=== PATIENT | male | born 1955 | race African-American/Black ===

== ENCOUNTER → 2020-10-03 | Outpatient (CLI) | payer MEDICARE, OTHER ==
[~2020-10-03] MED LIST: ATOR10TA PO; LOSA1TAB25 PO
--- NOTE | 2020-10-03 13:13 | RAD ---
MR#: [id number] Date of Study: 10/03/2020 Ordering Physician: TARA ANGEL, Referring Physician: BONIFACIO GEORGES Tech: NILE Harrison ARRT (Shekhar) (N) APPROVED REPORT Test Type: Exercise Stress Nurse/Tech: Merlene Dillard R.N. Test Indications: CAD Cardiac History: high cholesterol ,HTN Medications: See Electronic Medical Record Medical History: See Electronic Medical Record Resting ECG: SR w/ST elevation in lead V3, and very slightly in lead II Resting Heart Rate: 89 bpm Resting Blood Pressure: 136/75mmHg Pretest Chest Pain: No chest pain Nurse/Tech Notes S1S2, lungs CTA Consent: The procedure was explained to the patient in lay terms. Informed consent was witnessed. Efren eout was entered into [employer]. History and Stress Test performed by NILE Harrison ARRT (R) (N) Stress Symptoms general fatigue POST EXERCISE Reason for Termination: Reached target heart rate Target HR: Yes Max HR: 137 bpm 105% of Maximum Predicted HR: 131 bpm Exercise duration: 5:58 min:sec, 2 Stage Exercise capacity: 7.0METs Max Blood Pressure: 162/79mmHg Blood Pressure response to exercise: Normal blood pressure response during stress. Heart Rate response to exercise: wnl Chest Pain: No. Arrhythmia: Yes. started having pvc's and pac's ST Change: No. INTERPRETATION Stress EKG Conclusion: No evidence of stress induced EKG changes. Imaging Protocol IMAGE PROTOCOL: Rest Tc-99m/stress Tc-99m 1 day Rest: Stress: Viability: Radiopharm.Tc99m JropbvglsNn53x Sestamibi [id number] 32mCi Img Date 10/03/2020 10/03/2020 Inj-Img [id number]. 60min. Rest Admin Site:IV - Right AntecubitalAdministrator:NIEL Harrison ARRT (R)(N) Stress Admin Site: IV - Right AntecubitalAdministrator: RT Leda Tesfaye)(N) STRESS DATA End Diast. Vol.40.0mlAv. Heart Rate96.0bpm End Syst. Vol.3.0mlCO Index BSA0.0L/min Myocardial Mass85.0gEject. Zplvvopx19.0% Stress Rates Pk. Fill Rate0.61EDV/secLVtime Pk. Fill 187.95msec Pk. Empty Rate8.92ESV/secLVtime Pk. Eject93.69msec /3 Pk. Fill0.22EDV/sec Stress Scores Regional WT0.00Summed WT0.00 Regional WM0.00Summed WM0.00 The rest and stress images show normal perfusion, normal contraction and thickening. LV Perf. Quant 17 Seg. SSS0.00 17 Seg. SRS0.00 17 Seg. SDS0.00 Stress Defect Extent (% LAD)0.00Rest Defect Extent (% LAD)0.00Rev. Defect Extent (% LAD)0.00 Stress Defect Extent (% LCX) 0.00Rest Defect Extent (% LCX)0.00Rev. Defect Extent (% LCX)0.00 Stress Defect Extent (% RCA)0.00Rest Defect Extent (% RCA)0.00Rev. Defect Extent (% RCA)0.00 Stress Defect Extent (% EH)0.00Rest Defect Extent (% EH)0.00Rev. Defect Extent (% EH)0.00 Other Information Quality:Good Risk Assessment: Low Risk Conclusion 1. No evidence of EKG changes with stress testing. 2. Normal perfusion at stress/rest. 3. Low risk study. 4. EF > 60%. Signed by : Tara Angel, Electronically Approved : 10/03/2020 13:12:32
== END ==
LOC: NM 08:52
PROVIDERS: ATTEND Internal Medicine Cardiovascular Disease
DX: I25.10 Atherosclerotic heart disease of native coronary artery without angina pectoris (principal); I10 Essential (primary) hypertension
CPT/HCPCS: 78452; 93017; A9500

== ENCOUNTER 2021-09-09 21:12 | Inpatient (IN) | payer MEDICARE, OTHER ==
[~2021-09-09] VITALS: Ht 162.6 cm; Wt 57.4 kg
[2021-09-09] MEDS ORDERED: IV NORMAL SALINE 1000ML BAG 1,000 ML IV ONE (21:30)
--- NOTE | 2021-09-09 21:44 | PHYS DOC ---
Past Medical History Past Medical History: High Cholesterol, Hypertension Past Surgical History: No Surgical History Smoking Status: Former Smoker Alcohol Use: None Drug Use: None General Adult EDM: Chief Complaint: Near Syncope HPI: HPI: Patient is a 65-year-old male with past medical history of hypertension and HLD presenting per EMS for near syncope this evening. He reports that he was just getting ready for bed began to feel very dizzy and get tunnel vision so he decided to sit down. Per EMS his blood pressure was 80 systolic over 50s diastolic. He reports that otherwise he was feeling fine today just a bit tired earlier. He denies any chest pain, shortness of breath, palpitations, head trauma, abdominal pain or dark/bloody stools. He denies use of blood thinners. He reports that he takes losartan for his blood pressure, and took it as prescribed this morning. Review of Systems: Review of Systems: Constitutional: Denies fever or chills HENT: Denies nasal congestion or sore throat Respiratory: Denies cough or shortness of breath Cardiovascular: Denies chest pain or palpitations GI: Denies abdominal pain, nausea, or vomiting : Denies dysuria or hematuria Musculoskeletal: Denies back pain or joint pain Integument: Denies rash or skin lesions Neurologic: Denies headache, focal weakness or sensory changes; reports near syncope and dizziness Complete systems were reviewed and found to be within normal limits, except as documented in this note. Heart Score: C/O Chest Pain: No Current Medications: Current Medications Medications (Trade) Dose Ordered Sig/[facility] Start Time Stop Time Status Last Admin Dose Admin Sodium Chloride 1,000 ml @ 1,000 mls/hr 1X ONCE 09/09/21 21:30 09/09/21 22:29 UNV Physical Exam: PE: Constitutional: Well developed, well nourished, no acute distress, non-toxic appearance HENT: Normocephalic, atraumatic Eyes: Conjunctiva normal, no discharge, no nystagmus Neck: Normal range of motion, supple Lungs & Thorax: No respiratory distress, equal chest rise and fall Abdomen: Soft, no tenderness Skin: Warm, dry, no erythema, no rash Back: No tenderness, no CVA tenderness Extremities: No tenderness, no edema, moves all extremities, +2/2 dorsalis pedis and radial pulses b/l Neurologic: Alert and oriented X 3, normal motor function, normal sensory function, no focal deficits noted Psychologic: Affect normal, judgment normal EKG: EKG: Pleated at 2123, normal sinus rhythm at 72 bpm, very mild nonspecific ST segment changes with no prior EKG to compare to, QRS 78 ms, QT/QTc 384/422 ms Radiology/Procedures: Radiology/Procedures: PROCEDURE: PORTABLE CHEST 1V Exam: Chest one view INDICATION: Near syncope TECHNIQUE: Frontal view of the chest Comparisons: None FINDINGS: The cardiomediastinal silhouette and pulmonary vessels are within normal limits. The lung and pleural spaces are clear. IMPRESSION: No acute cardiopulmonary process. Electronically signed by: Swapnil Cunha MD (09/09/2021 10:29 PM) [facility] PROCEDURE: CT HEAD WO CONTRAST Exam: CT head INDICATION: Near syncope, dizziness TECHNIQUE: Sequential axial images through the head were obtained without the administration of IV contrast. Exposure: One or more of the following in the visualized dose reduction techniques were utilized for this examination: 1. Automated exposure control 2. Adjustment of the MA and/or KV according to patient size 3. Use of iterative of reconstructive technique Comparisons: None FINDINGS: No focal parenchymal lesion or hemorrhage is identified. There is no midline shift or sulcal effacement. No acute vascular territory infarction is identified. Aldana-white distinction is preserved. The ventricular system is within normal limits without compression hydrocephalus. The basal cisterns are well maintained. The visualized portions of the paranasal sinuses and mastoid air cells are well- pneumatized. No acute fractures. IMPRESSION: No acute intracranial abnormality. Electronically signed by: Swapnil Cunha MD (09/09/2021 10:29 PM) [facility] Course & Med Decision Making: Course & Med Decision Making Pertinent Labs and Imaging studies reviewed. (See chart for details) Patient is a 65-year-old male with past medical history of hypertension and hyperlipidemia presenting from near syncope this evening. CBC unremarkable, CMP unremarkable besides creatinine of 2.5. No old labs to compare to per [facility] review. Head CT with no acute intracranial abnormality. Chest X-ray with no acute cardiopulmonary process. Patient initially hypotensive at 80 systolic, 1 L normal saline given. After 1 L of fluids, orthostatics were performed without significant change in heart rate or blood pressure during. Troponin within normal limits. proBNP within normal limits. Urine unremar kable. Lactic acidosis noted. IVF continued. Hyperammonemia also noted. Lactulose provided. Patient requiring admission for further evaluation and treatment. Discussed with Dr. Goerge (hospitalist) who is in agreement with admission. Discussed findings and plan with patient, who acknowledges understanding and agreement. Afshin Disclaimer: Afshin Disclaimer: This electronic medical record was generated, in whole or in part, using a voice recognition dictation system. Departure Departure Impression: Primary Impression: Near syncope Additional Impressions: Hypotension Qualified Codes: I95.9 - Hypotension, unspecified Renal insufficiency Lactic acidosis Hyperammonemia Disposition: ADMITTED INPATIENT Admitting Physician: JOSE (Ariel) Condition: GUARDED Critical Care Time Critical care time was 30 minutes which includes time at bedside, spent in discussion of patient's care with specialists and/or family members, with interpretation of laboratory and/or radiological studies and is exclusive of procedures. PAOLO RODRIGUES DO Sep 09, 2021 21:44
[2021-09-09 22:02] LABS: BASO # 0.1 x10^3/uL (0.0-0.2); BASO % 1 % (0-3); EOS # 0.6 x10^3/uL (0.0-0.7); EOS % 8 % (0-3); HEMATOCRIT 40.8 % (39.0-53.0); HEMOGLOBIN 13.8 g/dL (13.0-17.5); LYMPH # 1.9 x10^3/uL (1.0-4.8); LYMPH % 25 % (24-48); MEAN CORPUSCULAR HEMOGLOBIN 31 pg (25-35); MEAN CORPUSCULAR HGB CONC 34 g/dL (31-37); MEAN CORPUSCULAR VOLUME 92 fL (79-100); MONO # 0.7 x10^3/uL (0.0-1.1); MONO % 9 % (0-9); NEUT # 4.4 x10^3/uL (1.8-7.7); NEUT % 57 % (31-73); PLATELET COUNT 217 x10^3/uL (140-400); RED BLOOD COUNT 4.44 x10^6/uL (4.30-5.70); RED CELL DISTRIBUTION WIDTH 14.5 % (11.5-14.5); WHITE BLOOD COUNT 7.7 x10^3/uL (4.0-11.0)
[2021-09-09 22:05] LABS: CALCIUM 8.8 mg/dL (8.5-10.1); CREATININE 2.5 mg/dL (0.7-1.3); GFR 31.4; POTASSIUM 3.8 mmol/L (3.5-5.1)
[2021-09-09 22:10] LABS: ALBUMIN 3.8 g/dL (3.4-5.0); ALBUMIN/GLOBULIN RATIO 1.3 (1.0-1.7); MAGNESIUM 2.1 mg/dL (1.8-2.4); TOTAL BILIRUBIN 1.1 mg/dL (0.2-1.0); TOTAL PROTEIN 6.8 g/dL (6.4-8.2)
--- NOTE | 2021-09-09 22:31 | RAD ---
Exam: Chest one view INDICATION: Near syncope TECHNIQUE: Frontal view of the chest Comparisons: None FINDINGS: The cardiomediastinal silhouette and pulmonary vessels are within normal limits. The lung and pleural spaces are clear. IMPRESSION: No acute cardiopulmonary process. Electronically signed by: Swapnil Cunha MD (09/09/2021 10:29 PM) [facility]
--- NOTE | 2021-09-09 22:31 | RAD ---
Exam: CT head INDICATION: Near syncope, dizziness TECHNIQUE: Sequential axial images through the head were obtained without the administration of IV co ntrast. Exposure: One or more of the following in the visualized dose reduction techniques were utilized for this examination: 1. Automated exposure control 2. Adjustment of the MA and/or KV according to patient size 3. Use of iterative of reconstructive technique Comparisons: None FINDINGS: No focal parenchymal lesion or hemorrhage is identified. There is no midline shift or sulcal effaceme nt. No acute vascular territory infarction is identified. Aldana-white distinction is preserved. The ventricular system is within normal limits without compression hydrocephalus. The basal cisterns are well maintained. The visualized portions of the paranasal sinuses and mastoid air cells are well-pneumatized. No acute fractures. IMPRESSION: No acute intracranial abnormality. Electronically signed by: Swapnil Cunha MD (09/09/2021 10:29 PM) [facility]
[2021-09-09 22:59] LABS: BILIRUBIN,URINE NEGATIVE (NEG); CLARITY,URINE CLEAR; COLOR,URINE YELLOW; NITRITE,URINE NEGATIVE (NEG); PH,URINE 6.5 (<5.0-8.0); PROTEIN,URINE NEGATIVE (NEG-TRACE); UROBILINOGEN,URINE 0.2 mg/dL (0.2 mg/dL)
[2021-09-09 23:04] LABS: BARBITURATES NEG (NEG); BENZODIAZEPINES NEG (NEG); CANNABINOIDS NEG (NEG); COCAINE NEG (NEG); METHADONE NEG (NEG); OPIATES NEG (NEG); PHENCYCLIDINE NEG (NEG)
[2021-09-09 23:05] LABS: AMPHETAMINE/METHAMPHETAMINE NEG (NEG); BACTERIA,URINE 0 /HPF (0-FEW); HYALINE CASTS, URINE MODERATE /HPF; RBC,URINE OCC /HPF (0-2); WBC,URINE OCC /HPF (0-4)
[2021-09-10] MEDS ORDERED: ONDANSETRON PF 4 MG/2 ML VIAL. IVP PRN
[2021-09-10] MEDS ORDERED: IV NORMAL SALINE 1000ML BAG 1,000 ML IV SCH (00:30)
[2021-09-10] MEDS ORDERED: LACTULOSE 20 GM/30 ML SOLUTION. PO ONE (00:30)
[2021-09-10] MEDS ORDERED: IV NORMAL SALINE 1000ML BAG 1,000 ML IV ONE (00:30)
[2021-09-10 01:24] VITALS: BP 118/73
--- NOTE | 2021-09-10 02:00 | EKG ---
[facility] [address] [place] [address] Test Date: 2021-09-09 Test Time: 21:23:43 Pat Name: SHAE KELLEY Department: Room: 582 1 Gender: M [employer]: : 1955 Requested By: PAOLO RODRIGUES Order Number: [id number] Reading MD: Jamie Lott Measurements Intervals [place] Rate: 72 P: AK: QRS: 50 QRSD: 78 T: 51 QT: 384 QTc: 422 Interpretive Statements SINUS RHYTHM ST & T ABNORMALITY, CONSIDER RECENT INFERIOR MYOCARDIAL OR PERICARDIAL DAMAGE ABNORMAL ECG RI6.02 No previous ECG available for comparison Electronically Signed On 09-11-2021 9:27:29 CRYSTAL LAPPER by Jamie Lott
[2021-09-10 07:00] VITALS: BP 156/70
[2021-09-10 11:00] VITALS: BP 158/64
--- NOTE | 2021-09-10 13:03 | SSS ---
DATE OF SERVICE: 09/10/2021 ADMIT DATE: 09/09/2021 CHIEF COMPLAINT: Syncope. HISTORY OF PRESENT ILLNESS: The patient is a pleasant middle-aged male who has been having problems with dizziness lately. He states when he stands up, he gets a little dizzy. At this time, he actually passed out. He was brought in by EMS. When they arrived, his pressure was 80/50. He reports otherwise feeling great. While in the ER, he was noted to have a little bit of a high lactic acid of 4.1. He was admitted overnight for observation. This morning, his lactic acid is back down to the normal range at 1.7. He looks great. He wants to go home. Vital signs are stable. I suspect he had some orthostasis. We are going to discharge the patient. I gave him instructions on how to stand up slowly. PAST MEDICAL HISTORY: Hypertension, hyperlipidemia, tobacco abuse. ALLERGIES: PENICILLIN. FAMILY HISTORY: Hypertension. SOCIAL HISTORY: He smokes. No drink or drugs. MEDICATIONS: Reviewed, please refer to the MRAD. REVIEW OF SYSTEMS: GENERAL: No history of weight change, weakness or fevers. SKIN: No bruising, hair changes or rashes. EYES: No blurred, double or loss of vision. NOSE AND THROAT: No history of nosebleeds, hoarseness or sore throat. HEART: No history of palpitations, chest pain or shortness of breath on exertion. LUNGS: Denies cough, hemoptysis, wheezing or shortness of breath. GASTROINTESTINAL: Denies changes in appetite, nausea, vomiting, diarrhea or constipation. GENITOURINARY: No history of frequency, urgency, hesitancy or nocturia. NEUROLOGIC: Denies history of numbness, tingling, tremor or weakness. PSYCHIATRIC: No history of panic, anxiety or depression. ENDOCRINE: No history of heat or cold intolerance, polyuria or polydipsia. EXTREMITIES: Denies muscle weakness, joint pain, pain on walking or stiffness. PHYSICAL EXAMINATION: VITALS: Within normal limits and are stable. GENERAL: No apparent distress. Alert and oriented. HEENT: Normal cephalic atraumatic, external auditory canals are patent EYES: Extraocular muscles are intact, pupils are equally round and reactive to light and accommodation MUSCULOSKELETAL: Well developed, well nourished, good range of motion ENDOCRINE: No thyromegaly was palpated LYMPHATICS: No cervical chain or axillary nodes were noted HEMATOPOIETIC: No bruising NECK: Supple, no JVD, no thyromegaly was noted. LUNGS: Clear to auscultation in all lung earl without rhonchi or wheezing. HEART: RRR, S1, S2 present. Peripheral pulses intact, no obvious murmurs were noted. ABDOMEN: Soft, nontender. Positive bowel sounds no organomegaly, normal bowel sounds. EXTREMITIES: Without any cyanosis, clubbing, or edema. Pedal pulses intact, Homans sign is negative. NEUROLOGIC: Normal speech, normal tone. A and O x 3, moves all extremities, no obvious focal deficits. PSYCHIATRIC: Normal affect, normal mood. Stable. SKIN: No ulcerations or rashes, good skin turgor, no jaundice. VASCULAR: Good capillary refill, neurovascular bundle appears to be intact. ASSESSMENT AND PLAN: Resolving syncope, suspect vasovagal. I instructed the patient to please stand up slowly, give his body a few minutes to readjust. DISPOSITION: Home. ACTIVITY: As tolerated. DIET: Low sodium. MEDICATIONS: Please see the MRAD. TOTAL TIME: [address]: Windy TID: [id number]
--- NOTE | 2021-09-10 13:26 | NUR ---
Discharge Note: VERONICA KELLEY [facility] Discharge instructions reviewed with the patient and a copy given. All questions have been answered and understanding verbalized. The following instructions and handouts were given: Orthostatic hypotension, causes and prevention Increase fluid intake, avoid caffeine Follow up with PCP in a week. Seek emergent care if with severe weakness, repeat episode with chest pain. Discontinued lines and drains: peripheral IV intatc, patient tolerated removal, no complications noted Patient discharged to home with self care via WC accompanied by the patient's at 1300.
== END 2021-09-10 13:00 | disposition home or self-care (01) | DRG 312 ==
LOC: ER 21:12 → UNMERGE 23:55 → 5 SOUTH 23:55 → MERGE 23:55
PROVIDERS: ADMIT Internal Medicine; ATTEND Internal Medicine
DX: R55 Syncope and collapse (principal); E72.20 Disorder of urea cycle metabolism, unspecified; E87.2 Acidosis; I95.9 Hypotension, unspecified; E78.00 Pure hypercholesterolemia, unspecified; E78.5 Hyperlipidemia, unspecified; F17.200 Nicotine dependence, unspecified, uncomplicated; I10 Essential (primary) hypertension; N28.9 Disorder of kidney and ureter, unspecified; Z82.49 Family history of ischemic heart disease and other diseases of the circulatory system; Z88.8 Allergy status to other drugs, medicaments and biological substances; Z79.899 Other long term (current) drug therapy; Z88.0 Allergy status to penicillin
CPT/HCPCS: 36415; 70450; 71045; 80053; 80307; 81001; 82140; 82553; 83605; 83735; 83880; 84484; 85025; 87040; 93005; 96360; G0480; J7030; 99285-25; G0378

== ENCOUNTER → 2021-09-20 | Outpatient (CLI) | payer MEDICARE, OTHER ==
[~2021-09-20] MED LIST changes: +POTA-112 PO
--- NOTE | 2021-09-20 09:27 | RAD ---
EXAM: Abdominal aortic sonogram. HISTORY: Tobacco use. Aortic aneurysms screening. TECHNIQUE: Sonographic imaging of the abdominal aorta was performed. COMPARISON: None. FINDINGS: The proximal abdominal aorta measures 2.2 cm in caliber. The mid abdominal aorta measures 1 .7 cm in caliber. The distal abdominal aorta measures 1.6 cm in caliber. There is mild calcified athe rosclerotic plaque involving the aorta. IMPRESSION: 1. No evidence of abdominal aortic aneurysm. 2. Mild aortic atherosclerosis. Electronically signed by: Samantha Boston MD (09/20/2021 9:24 AM) [id number]
== END ==
LOC: US 09:17
PROVIDERS: ATTEND Internal Medicine Cardiovascular Disease
DX: I70.0 Atherosclerosis of aorta (principal); Z72.0 Tobacco use
CPT/HCPCS: 76770

== ENCOUNTER 2021-09-22 20:02 | Emergency (ER) | payer MEDICARE, OTHER ==
[~2021-09-22] VITALS: Ht 162.6 cm; Wt 63.0 kg
[~2021-09-22 20:02] MED LIST changes: -POTA-112 PO
--- NOTE | 2021-09-22 20:10 | PHYS DOC ---
General Adult EDM: Chief Complaint: HYPOTENSION HPI: HPI: Patient is a 65-year-old male who presents to the emergency department for hypotension. Patient had an episode of hypotension 2 weeks ago that resolved. EMS was called for patient being "lethargic" and when they arrived he was hypotensive and bradycardic. They reported that patient had a systolic blood pressure of 103. Patient is alert and oriented x4. He denies nausea, fevers, vomiting, diarrhea, chest pain, shortness of breath, dizziness. Patient has a history of hypertension and hyperlipidemia. (OKSANA DILLON APRN) Review of Systems: Review of Systems: Constitutional: See HPI Respiratory: See HPI Cardiovascular: See HPI GI: See HPI Neurologic: See HPI (OKSANA DILLON APRN) Heart Score: C/O Chest Pain: No Risk Factors: Risk Factors: DM, Current or recent (<one month) smoker, HTN, HLP, family history of CAD, obesity. Risk Scores: Score 0 - 3: 2.5% MACE over next 6 weeks - Discharge Home Score 4 - 6: 20.3% MACE over next 6 weeks - Admit for Clinical Observation Score 7 - 10: 72.7% MACE over next 6 weeks - Early Invasive Strategies (OKSANA DILLON APRN) Current Medications: Current Medications Medications (Trade) Dose Ordered Sig/Issa Start Time Stop Time Status Last Admin Dose Admin Sodium Chloride 1,000 ml @ 1,000 mls/hr 1X ONCE 09/22/21 20:15 09/22/21 21:14 UNV (OKSANA DILLON APRN) Allergies: Allergies: Allergies Coded Allergies Type Severity Reaction Last Updated Verified Penicillins Allergy Intermediate 10/03/20 Yes (OKSANA DILLON APRN) Physical Exam: PE: Constitutional: Well developed, well nourished, no acute distress, non-toxic appearance. [] HENT: Normocephalic, atraumatic, bilateral external ears normal, oropharynx moist, no oral exudates, nose normal. [] Eyes: PERRL EOMI, conjunctiva normal, no discharge. [] Neck: Normal range of motion, no tenderness, supple, no stridor. [] Cardiovascular:Heart rate regular rhythm, no murmur [] Lungs & Thorax: Bilateral breath sounds clear to auscultation [] Abdomen: Bowel sounds normal, soft, no tenderness, no masses, no pulsatile masses. [] Skin: Warm, dry, no erythema, no rash. [] Back: Normal range of motion Extremities: No tenderness, no cyanosis, no clubbing, ROM intact, no edema. [] Neurologic: Alert and oriented X 3, normal motor function, normal sensory function, no focal deficits noted. [] Psychologic: Affect normal, judgement normal, mood normal. [] (OKSANA DILLON APRN) Current Patient Data: Labs: Laboratory Tests Test 09/22/21 20:31 09/22/21 20:39 Glucose (Fingerstick) 133 mg/dL White Blood Count 8.2 x10^3/uL Red Blood Count 4.23 x10^6/uL Hemoglobin 13.2 g/dL Hematocrit 39.2 % Mean Corpuscular Volume 93 fL Mean Corpuscular Hemoglobin 31 pg Mean Corpuscular Hemoglobin Concent 34 g/dL Red Cell Distribution Width 14.2 % Platelet Count 211 x10^3/uL Neutrophils (%) (Auto) 62 % Lymphocytes (%) (Auto) 23 % Monocytes (%) (Auto) 8 % Eosinophils (%) (Auto) 6 % Basophils (%) (Auto) 1 % Neutrophils # (Auto) 5.1 x10^3/uL Lymphocytes # (Auto) 1.8 x10^3/uL Monocytes # (Auto) 0.7 x10^3/uL Eosinophils # (Auto) 0.5 x10^3/uL Basophils # (Auto) 0.1 x10^3/uL Sodium Level 137 mmol/L Potassium Level 2.7 mmol/L Chloride Level 96 mmol/L Carbon Dioxide Level 25 mmol/L Anion Gap 16 Blood Urea Nitrogen 12 mg/dL Creatinine 2.5 mg/dL Estimated GFR (Cockcroft-Gault) 31.4 BUN/Creatinine Ratio 5 Glucose Level 131 mg/dL Calcium Level 8.3 mg/dL Magnesium Level 2.2 mg/dL Total Bilirubin 1.1 mg/dL Aspartate Amino Transf (AST/SGOT) 45 U/L Alanine Aminotransferase (ALT/SGPT) 49 U/L Alkaline Phosphatase 50 U/L Troponin I High Sensitivity 6 ng/L Total Protein 6.4 g/dL Albumin 3.8 g/dL Albumin/Globulin Ratio 1.5 Ethyl Alcohol Level 135 mg/dL Current Medications Medications (Trade) Dose Ordered Sig/Issa Route PRN Reason Start Time Stop Time Status Last Admin Dose Admin Sodium Chloride 1,000 ml @ 1,000 mls/hr 1X ONCE IV 09/22/21 20:15 09/22/21 21:14 DC 09/22/21 20:12 Potassium Chloride (Klor-Con) 40 meq 1X ONCE PO 09/22/21 22:00 09/22/21 22:01 Potassium Chloride/Water 100 ml @ 50 mls/hr 1X ONCE IV 09/22/21 21:15 09/22/21 23:14 UNV Potassium Chloride/Water 100 ml @ 100 mls/hr Q1HR IV 09/22/21 22:00 09/22/21 23:59 09/22/21 21:36 (OKSANA DILLON APRN) EKG: EKG: [] EKG performed by ER staff at 2012 shows sinus rhythm with a heart rate of 62, QTc 449, slightly prolonged ID interval at 248. read by Dr. Garland at 2048 (OKSANA DILLON APRN) Radiology/Procedures: Radiology/Procedures: []PROCEDURE: PORTABLE CHEST 1V EXAMINATION: Chest radiograph. VIEWS: Single AP view of the chest COMPARISON: None INDICATION:65 years, Male, hypotension, bradycardia. FINDINGS: Normal cardiomediastinal silhouette. No focal consolidation. No pleural effusion or pneumothorax. No acute osseous process. IMPRESSION: No acute cardiopulmonary process. Electronically signed by: Georgette Weston DO (09/22/2021 9:35 PM) [facility] DICTATED and SIGNED BY: GEORGETTE WESTON DO DATE: 09/22/21 [id number] (OKSANA DILLON APRN) Course & Med Decision Making: Course & Med Decision Making Pertinent Labs and Imaging studies reviewed. (See chart for details) [] Patient presents to the emergency department today for hypotension brought in by EMS. Patient has a history of hypertension hyperlipidemia. Patient does not have any complaints currently. Patient admits to smoking marijuana and drinking alcohol today. Hypotension treated with IV fluids. Potassium 2.7-replaced in ER with PO and IV potassium. Creatinine 2.5, consistent with previous findings. ETOH 135. Chest x-ray unremarkable. Magnesium 2.2 within normal limits. Potassium was rechecked and it was 3.3 following IV potassium, patient discharged with potassium supplementation. Advised to eat potassium rich foods at home. Patients blood pressure continues to be stable 100-105 systolic. I discussed with patient all findings and diagnostic testing as well as the need to follow-up with PCP for further evaluation and treatment or return to the ER if any new or worsening symptoms. Strict return precautions were also discussed at length. Patient voiced understanding and agreement with the plan. Patient is hemodynamically stable at the time of disposition. (OKSANA DILLON APRN) Dragon Disclaimer: Dragon Disclaimer: This electronic medical record was generated, in whole or in part, using a voice recognition dictation system. (OKSANA DILLON APRN) Departure Departure Impression: Primary Impression: Hypokalemia Additional Impressions: Hypotension Qualified Codes: I95.9 - Hypotension, unspecified Alcohol use Disposition: HOME / SELF CARE / HOMELESS Condition: GOOD Referrals: ALEJANDRO CHIRINOS MD (PCP) Patient Instructions: Hypokalemia, Hypotension Additional Instructions: You were seen in the emergency department today for hypotension. You had no complaints while in the ER. Your blood pressure was on the lower side of normal. You were noted to have a low potassium while in the ER. This was replaced with IV and oral potassium supplementation. At home, ensure that you are eating potassium rich foods like green leafy vegetables and bananas. You are being discharged home with potassium supplementation for you to take daily. Your creatinine which is a measurement of your renal function was elevated, this was consistent with your previous lab findings from the ER. You need to follow-up with your primary care provider regarding this because it could result in marked renal failure if not monitored and treated. Discontinue alcohol and marijuana use since this is possibly contributing to your low potassium and your hypotension. I would advise you to follow-up with your primary care provider on Saturday regarding your ER visit. Return to the emergency department if you develop chest pain, palpitations, shortness of breath, dizziness, syncope, intractable nausea or vomiting, or any new or worsening concerns. Scripts Potassium Chloride (Klor-Con 10) 10 Meq Tablet.er 1 TAB PO DAILY for 14 Days, #14 TAB 0 Refills Prov: OKSANA DILLON APRN 09/23/21 OKSANA DILLON APRN Sep 22, 2021 20:10 WILSON GARLAND DO Sep 24, 2021 01:17
[2021-09-22] MEDS ORDERED: IV NORMAL SALINE 1000ML BAG 1,000 ML IV ONE (20:15)
[2021-09-22 20:47] LABS: BASO # 0.1 x10^3/uL (0.0-0.2); BASO % 1 % (0-3); EOS # 0.5 x10^3/uL (0.0-0.7); EOS % 6 % (0-3); HEMATOCRIT 39.2 % (39.0-53.0); HEMOGLOBIN 13.2 g/dL (13.0-17.5); LYMPH # 1.8 x10^3/uL (1.0-4.8); LYMPH % 23 % (24-48); MEAN CORPUSCULAR HEMOGLOBIN 31 pg (25-35); MEAN CORPUSCULAR HGB CONC 34 g/dL (31-37); MEAN CORPUSCULAR VOLUME 93 fL (79-100); MONO # 0.7 x10^3/uL (0.0-1.1); MONO % 8 % (0-9); NEUT # 5.1 x10^3/uL (1.8-7.7); NEUT % 62 % (31-73); PLATELET COUNT 211 x10^3/uL (140-400); RED BLOOD COUNT 4.23 x10^6/uL (4.30-5.70); RED CELL DISTRIBUTION WIDTH 14.2 % (11.5-14.5); WHITE BLOOD COUNT 8.2 x10^3/uL (4.0-11.0)
[2021-09-22 21:05] LABS: ALBUMIN 3.8 g/dL (3.4-5.0); ALBUMIN/GLOBULIN RATIO 1.5 (1.0-1.7); CALCIUM 8.3 mg/dL (8.5-10.1); CREATININE 2.5 mg/dL (0.7-1.3); GFR 31.4; TOTAL BILIRUBIN 1.1 mg/dL (0.2-1.0); TOTAL PROTEIN 6.4 g/dL (6.4-8.2)
[2021-09-22 21:09] LABS: POTASSIUM 2.7 mmol/L (3.5-5.1)
[2021-09-22] MEDS ORDERED: POTASSIUM CHLORIDE 20MEQ 100 ML IV ONE (21:15)
[2021-09-22] MEDS: POTASSIUM CHLORIDE 10MEQ 100 ML IV SCH ×2 (21:36→22:46)
--- NOTE | 2021-09-22 21:37 | RAD ---
EXAMINATION: Chest radiograph. VIEWS: Single AP view of the chest COMPARISON: None INDICATION:65 years, Male, hypotension, bradycardia. FINDINGS: Normal cardiomediastinal silhouette. No focal consolidation. No pleural effusion or pneumothorax. No acute osseous process. IMPRESSION: No acute cardiopulmonary process. Electronically signed by: Mitchell Weston DO (09/22/2021 9:35 PM) [facility]
[2021-09-22 21:45] LABS: BILIRUBIN,URINE NEGATIVE (NEG); CLARITY,URINE CLEAR; COLOR,URINE YELLOW; NITRITE,URINE NEGATIVE (NEG); PH,URINE 7.5 (<5.0-8.0); PROTEIN,URINE NEGATIVE (NEG-TRACE); UROBILINOGEN,URINE 0.2 mg/dL (0.2 mg/dL)
[2021-09-22 21:52] LABS: BARBITURATES NEG (NEG); BENZODIAZEPINES NEG (NEG); CANNABINOIDS NEG (NEG); COCAINE NEG (NEG); METHADONE NEG (NEG); OPIATES NEG (NEG); PHENCYCLIDINE NEG (NEG)
[2021-09-22 21:55] LABS: AMPHETAMINE/METHAMPHETAMINE NEG (NEG)
[2021-09-22 21:59] LABS: BACTERIA,URINE 0 /HPF (0-FEW); HYALINE CASTS, URINE MODERATE /HPF; RBC,URINE 0 /HPF (0-2); WBC,URINE 0 /HPF (0-4)
[2021-09-22] MEDS ORDERED: POTASSIUM CHLORIDE 20 MEQ TABLET.ER. PO ONE (22:00)
--- NOTE | 2021-09-23 00:19 | EKG ---
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
[2021-09-23] MEDS ORDERED: POTA-112 PO (00:34)
[2021-09-23 00:42] VITALS: BP 104/66
--- NOTE | 2021-09-23 02:00 | EKG ---
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
== END 2021-09-23 01:04 | disposition home or self-care (01) ==
LOC: ER 20:02
DX: I95.9 Hypotension, unspecified (principal); E87.6 Hypokalemia; I10 Essential (primary) hypertension
CPT/HCPCS: 36415; 71045; 80053; 80307; 81001; 82962; 83735; 84132; 84484; 85025; 93005; 96361; 96365; 99285; G0480; J3480; J7030

== ENCOUNTER → 2021-11-10 | Outpatient (CLI) | payer MEDICARE, OTHER ==
[~2021-11-10] MED LIST changes: +POTA-112 PO
--- NOTE | 2021-11-10 11:22 | CARD ---
MR#: [id number] Date of Study: 11/10/2021 Ordering Physician: TARA CASTANO, Referring Physician: TARA CASTANO, Tech: Neena Valdivia [facility] APPROVED REPORT EXAM: Two-dimensional and M-mode echocardiogram with Doppler and color Doppler. Other Information Quality : AverageHR: 58bpm Rhythm : NSR INDICATION 2D DIMENSIONS RVDd2.8 (2.9-3.5cm)Left Atrium(2D)2.7 (1.6-4.0cm) IVSd1.3 (0.7-1.1cm)Aortic Root(2D)2.8 (2.0-3.7cm) LVDd3.3 (3.9-5.9cm)LVOT Diameter2.3 (1.8-2.4cm) PWd1.3 (0.7-1.1cm)LVDs2.0 (2.5-4.0cm) FS (%) 39.3 %SV30.5 ml LVEF(%)71.2 (>50%) Aortic Valve AoV Peak Marito.117.3cm/sAoV VTI23.1cm AO Peak GR.5.5mmHgLVOT Peak Marito.79.7cm/s AO Mean GR.2mmHgAVA (VMAX)2.74cm2 Mitral Valve MV E Bgadaodq71.6cm/sMV DECEL JTPB331ax MV A Empqfyia53.9cm/sE/A Ratio1.0 Pulmonary Valve PV Peak Gcbogdlp65.4cm/s Tricuspid Valve TR P. Fdzvhdax847ex/sTR Peak Gr.24mmHg LEFT VENTRICLE The left ventricle is normal size. There is mild concentric left ventricular hypertrophy. The left ve ntricular systolic function is normal. Estimated ejection fraction 60%. There is normal LV segmental wall motion. RIGHT VENTRICLE The right ventricle is normal size. There is normal right ventricular wall thickness. The right ventr icular systolic function is normal. ATRIA The left atrium size is normal. The right atrium size is normal. The interatrial septum is intact wit h no evidence for an atrial septal defect or patent foramen ovale as noted on 2-D or Doppler imaging. AORTIC VALVE The aortic valve is normal in structure and function. Doppler and Color Flow revealed trace aortic re gurgitation. There is no significant aortic valvular stenosis. MITRAL VALVE The mitral valve is normal in structure and function. There is no evidence of mitral valve prolapse. There is no mitral valve stenosis. Doppler and Color Flow revealed mild mitral regurgitation. TRICUSPID VALVE The tricuspid valve is normal in structure and function. Doppler and Color Flow revealed mild tricusp id regurgitation. Estimated PAP 20 mmHg. There is no tricuspid valve stenosis. PULMONIC VALVE The pulmonary valve is normal in structure and function. Doppler and Color Flow revealed trace pulmon ic valvular regurgitation. GREAT VESSELS The aortic root is normal in size. The ascending aorta is normal in size. The IVC is normal in size a nd collapses >50% with inspiration. PERICARDIAL EFFUSION There is no evidence of significant pericardial effusion. Critical Notification Critical Value: No <Conclusion> The left ventricular systolic function is normal. Estimated ejection fraction 60%. There is normal LV segmental wall motion. Mild mitral regurgitation. Mild tricuspid regurgitation. Estimated PAP 20 mmHg. There is no evidence of significant pericardial effusion. Signed by : Erik Puente, Electronically Approved : 11/10/2021 11:22:04
== END ==
LOC: ECHO 07:53
PROVIDERS: ATTEND Internal Medicine Cardiovascular Disease
DX: I08.1 Rheumatic disorders of both mitral and tricuspid valves (principal); I25.10 Atherosclerotic heart disease of native coronary artery without angina pectoris
CPT/HCPCS: 93306